=== PATIENT | male | born 1940 | race Caucasian/White ===

== ENCOUNTER 2022-08-21 09:32 | Outpatient (CLI) | payer OTHER | END 2022-08-21 09:33 | disposition home or self-care (01) | LOC: BICMRI 09:32 → MRI 09:33 | PROVIDERS: ATTEND Physician Assistant Medical | DX: R79.89 Other specified abnormal findings of blood chemistry (principal); K76.0 Fatty (change of) liver, not elsewhere classified | CPT/HCPCS: 82565 ==

== ENCOUNTER 2022-09-08 09:48 | Outpatient (CLI) | payer OTHER | END 2022-09-08 09:49 | disposition home or self-care (01) | LOC: ULT 09:48 | PROVIDERS: ATTEND Internal Medicine Nephrology | DX: N18.4 Chronic kidney disease, stage 4 (severe) (principal) | CPT/HCPCS: 76770 ==